=== PATIENT | female | born 1960 | race Caucasian/White ===

== ENCOUNTER 2019-12-11 08:52 | Day surgery (SDC) | payer OTHER ==
[~2019-12-11 08:52] MED LIST: DIPRIVAN 200 MG/20 ML IV ONE; Ketamine HCl 50 MG/ML ONE
[2019-12-11] MEDS ORDERED: Sodium Chloride 0.9(Preservative Free) 10 ML IJ ONE (08:53)
[2019-12-11] MEDS ORDERED: Depo-Medrol 40 MG/ML IM ONE (08:53)
[2019-12-11] MEDS ORDERED: Xylocaine 1% Vial 30 ML PF IJ ONE (08:53)
[2019-12-11] MEDS ORDERED: Lactated Ringers 1,000 ML IV ONE (13:52)
--- NOTE | 2019-12-12 14:55 | XRAY ---
22 seconds fluoroscopy time in surgery for lumbar RANULFO.
--- NOTE | 2019-12-14 22:20 | XRAY ---
Indication: Lumbar RANULFO. Intraoperative fluoroscopy was provided for 22 seconds. 2 digital spot images submitted for interpretation demonstrate a posterior spinal needle tip projected at the posterior margin of the spinal sac just to the right of midline at the L4-L5 level. Correlate with intraoperative findings/report.
== END 2019-12-11 10:40 | disposition home or self-care (01) ==
LOC: SDC-PAIN 08:52
PROVIDERS: ATTEND Psychiatry & Neurology Pain Medicine
DX: M54.16 Radiculopathy, lumbar region (principal); I10 Essential (primary) hypertension; M79.7 Fibromyalgia
CPT/HCPCS: 62323; 72100; 77003; J1030; J2001; J2704; Q9966